=== PATIENT | male | born 1955 | race African-American/Black ===

== ENCOUNTER → 2016-10-27 | Day surgery (SDC) | payer OTHER ==
[~2016-10-27] MED LIST: ACETAMINOPHEN/HYDROcodone 325 MG/5 MG TAB ONE; ASPI81CH25 PO; ATOR40TA16 PO; BUPIVACAINE/EPINEPHRINE 0.5% PF 30 ML VIAL ONE; GLIP5TAB8 PO; GLUCTES27 TOPICAL; HYDR-3516 PO; HYDR-3583 PO; KETOROLAC TROMETHAMINE 30 MG/ML (IVP) VIAL IV PUSH ONE; LACTATED RINGER'S 1000 ML INJ 1,000 ML ONE; METF500T PO; MIDAZOLAM HCL 2 MG/2 ML VIAL ONE; MOBI7.5T PO; MULT1TAB84 PO; PROPOFOL 200 MG/20 ML AMP IV ONE; TRIAMCINOLONE ACETONIDE 40 MG/ML VIAL ONE; ceFAZolin INJ 1,000 MG VIAL ONE
--- NOTE | 2016-10-28 19:34 | MP ---
cc: CHRIS HEBERT M.D. DATE OF SURGERY October 27, 2016 PREOPERATIVE DIAGNOSIS Left knee medial meniscus tear. POSTOPERATIVE DIAGNOSIS Left knee medial meniscus tear. PROCEDURE Left knee arthroscopic partial medial meniscectomy. SURGEON Dr. Chris Hebert ANESTHESIA General. ESTIMATED BLOOD LOSS Less than 10 cc. TOURNIQUET TIME Zero minutes. COMPLICATIONS None. DESCRIPTION This patient is a 60-year-old male who injured his left knee. He has had persistent pain in regards to his condition, failure of conservative treatment. Clinical exam as well as MRI confirmed the above-named findings. The patient was counseled as to the risks, benefits and alternatives to the above named proposed surgical procedure. He did wish to proceed with surgery. PROCEDURE IN DETAIL A written consent was obtained. The patient identified by name, taken to the operating room, placed supine. General anesthesia was administered as well as 2 grams of IV Ancef. The left thigh carefully placed in well-padded leg reis, left lower extremity prepped and draped using as isopropyl alcohol, Hibiclens solution and DuraPrep solution. The standard medial and lateral parapatellar arthroscope portal was established. 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 The medial compartment revealed a complex tear of the posterior horn of the medial meniscus. An arthroscopic biter followed by an arthroscopic shaver was introduced in the medial compartment to perform partial medial meniscectomy. The meniscal rim was probed and noted to be stable after meniscectomy. The medial femoral condyle revealed diffuse grade 2 chondromalacia. There was an area of focal grade 4 chondromalacia along the far medial portion of the medial tibial plateau. The intercondylar notch revealed the anterior and posterior cruciate ligaments to be intact. The lateral compartment was relatively free of meniscal pathology and chondromalacia. The shaver was introduced into the anterior patellofemoral compartment. A chondroplasty along the undersurface of the patella was performed. At the conclusion of the surgical procedure 30 cc of 0.25% Marcaine with epinephrine was injected into the knee joint mixed with 40 milligrams Kenalog. The arthroscopic portals were closed with 3-0 Prolene suture. Sterile dressing applied. The patient tolerated the procedure well. No intraoperative complications noted. Chris Hebert MD JWKayleigh/RANDY /9:22 AM /7:05 PM
== END | disposition home or self-care (01) ==
LOC: ESDC 07:04
PROVIDERS: ATTEND Orthopaedic Surgery Sports Medicine
DX: S83.232A Complex tear of medial meniscus, current injury, left knee, initial encounter (principal)
CPT/HCPCS: 01400; 29881; J0690; J1885; J2250; J3010; J3301; J7120

== ENCOUNTER 2016-11-01 18:06 | Emergency (ER) | payer OTHER ==
[~2016-11-01] VITALS: Ht 195.6 cm; Wt 115.0 kg
[~2016-11-01 18:06] MED LIST changes: -ACETAMINOPHEN/HYDROcodone 325 MG/5 MG TAB ONE; -ASPI81CH25 PO; -ATOR40TA16 PO; -BUPIVACAINE/EPINEPHRINE 0.5% PF 30 ML VIAL ONE; -GLUCTES27 TOPICAL; -HYDR-3516 PO; -KETOROLAC TROMETHAMINE 30 MG/ML (IVP) VIAL IV PUSH ONE; -LACTATED RINGER'S 1000 ML INJ 1,000 ML ONE; -MIDAZOLAM HCL 2 MG/2 ML VIAL ONE; -MOBI7.5T PO; -PROPOFOL 200 MG/20 ML AMP IV ONE; -TRIAMCINOLONE ACETONIDE 40 MG/ML VIAL ONE; -ceFAZolin INJ 1,000 MG VIAL ONE
[2016-11-01 18:12] VITALS: BP 109/85; PULSE 96; RESP 17; TEMP 99.6; O2SAT 98
[2016-11-01 20:34] VITALS: BP 123/87; PULSE 87; RESP 18; TEMP 97.9; O2SAT 98
[2016-11-01] MEDS ORDERED: SODIUM CHLORIDE 0.9% FLUSH 5 ML FLUSH IVF PRN (21:30)
[2016-11-01] MEDS ORDERED: SODIUM CHLOR 0.9% 1000 ML INJ 1,000 ML IV ONE (21:30)
[2016-11-01 21:44] VITALS: O2SAT 97
--- NOTE | 2016-11-01 21:45 | PD ---
HPI Chief Complaint: Diabetic Time Seen by Provider: 21:17 Travel History International Travel<30 days: No Contact w/Intl Traveler<30days: No Traveled to known affect area: No History of Present Illness HPI 60-year-old male presents to the emergency department by private transportation for evaluation of elevated blood sugar. Patient is been a diabetic 5 years and takes metformin daily 1000 mg twice a day for management of his blood sugar. Patient has been well-controlled. Patient states Sunday he electively underwent knee surgery for a torn meniscus and has done well postoperatively regarding any knee complaints. Patient has had no redness, no swelling, no effusion, no warmth, no tenderness, no increasing pain, no lower extremity calf pain or pedal or lower leg/lower extremity edema. No shortness of breath no pleuritic pain no chest pain. Patient has had intermittent sweats and reported chills. Patient denies noting a fever. Patient has noticed increased urine output. Patient's had poor appetite today and complains of thirst. Patient reports that he did take both doses of his metformin today. Patient states his blood sugar was normal on Sunday did not check his blood sugar on Sunday today blood sugars have been elevated. Patient decided to come to the emergency room as symptoms are not resolving at home. At home blood sugars were 386; in triage reportedly blood sugar was 371. PFSH Past Medical History Narrative Medical Diabetes, cardiac ablation, orthopedic surgery/arthroscopy, diabetes lymphoma 2000 status post lymph node excision chemotherapy and radiation therapy ongoing tobacco use nursing notes reviewed Blood Disorders: No Heart Rhythm Problems: Yes (HAD ABLATION AND RESOLVED) Cancer: Yes (HX LYMPHOMA WITH RADIATION 2000) Cardiac Catheterization: No Cardiovascular Problems: Yes High Cholesterol: No Congestive Heart Failure: No Diabetes: Yes Patient Takes Glucophage: Yes (11/01/2016 at 1200) Diminished Hearing: No Endocrine: No Gastrointestinal Disorders: No Genitourinary: No Hypertension: No Immune Disorder: No Implanted Vascular Access Dvce: No Musculoskeletal: Yes Neurologic: Yes Psychiatric: No Reproductive: No Respiratory: Yes () Myocardial Infarction: No Radiation Therapy: Yes (2000) Thyroid Disease: No Tetanus Vaccination: > 5 Years Influenza Vaccination: No Past Surgical History Cardiac Surgery: Yes (CARDIAC ABLATION) Coronary Artery Bypass Graft: No Other Surgery: Yes (LYMPHOMA-CANCEROUS IN L NECK) Social History Alcohol Use: Yes (Occasionally) Tobacco Use: Yes (1/2 PPD) Substance Use: No Allergies-Medications (Allergen,Severity, Reaction): Coded Allergies: Aspirin (Unverified Adverse Reaction, Intermediate, Chest Pain, 11/01/16) Has tried multiple times to take low dose asa but gets central chest pain. Reported Meds & Prescriptions Reported Meds & Active Scripts Active Hydrocodone-Acetaminophen 10-325 mg Tab 1 Tab PO Q6H PRN Not to be filled before 10-26-16 Metformin (Metformin HCl) 500 Mg Tab 1,000 Mg PO BIDPC With meals Reported Multivitamin Adults (Multiple Vitamins W/ Minerals) 1 Tab 1 Tab PO DAILY Review of Systems Except as stated in HPI: all other systems reviewed are Neg General / Constitutional: Positive: Chills, No: Fever HENT: No: Congestion Cardiovascular: Positive: Diaphoresis, No: Chest Pain or Discomfort, Palpitations, Tachycardia, Syncope, Dyspnea on exertion, Edema Respiratory: No: Cough, Shortness of Breath, Wheezing, Hemoptysis, Pleuritic Pain Gastrointestinal: No: Nausea, Vomiting, Abdominal Pain Genitourinary: Positive: Frequency, No: Dysuria Musculoskeletal: No: Myalgias, Arthralgias, Limited ROM Skin: No Rash Neurologic: No: Weakness, Dizziness, Syncope, Focal Abnormalities, Coordination Problem Psychiatric: Positive: Anxiety Endocrine: Positive: Polydipsia Hematologic/Lymphatic: No: Easy Bruising Physical Exam Narrative GENERAL: Well-developed well-nourished male in no acute distress no respiratory distress; bedside blood glucose 335 SKIN: Warm and dry. HEAD: Normocephalic. EYES: No scleral icterus. No injection or drainage. NECK: Supple, trachea midline. No JVD or lymphadenopathy. CARDIOVASCULAR: Regular rate and rhythm without murmurs, gallops, or rubs. RESPIRATORY: Breath sounds equal bilaterally. No accessory muscle use. GASTROINTESTINAL: Abdomen soft, non-tender, nondistended. MUSCULOSKELETAL: No cyanosis, or edema. Attention left knee sutures intact, no redness, no increased warmth, no edema, no ballotable effusion, no decreased range of motion; distally extremities neurovascularly intact with 2+ posterior tibialis and dorsalis pedis pulse and no pedal or LLE edema. BACK: Nontender without obvious deformity. No CVA tenderness. Data Data Last Documented VS Vital Signs Date Time Temp Pulse Resp B/P Pulse Ox O2 Delivery O2 Flow Rate FiO2 11/01/16 23:00 83 18 139/92 98 Room Air 11/01/16 20:34 97.9 Orders Electrocardiogram (11/01/16 21:17) Complete Blood Count With Diff (11/01/16 21:17) Comprehensive Metabolic Panel (11/01/16 21:17) Magnesium (Mg) (11/01/16 21:17) Beta Hydroxybutyrate (Acetone) (11/01/16 21:17) Urinalysis - C+S If Indicated (11/01/16 21:17) Chest, Single Ap (11/01/16 21:17) Blood Glucose (11/01/16 21:17) Ecg Monitoring (11/01/16 21:17) Iv Access Insert/Monitor (11/01/16 21:17) Oximetry (11/01/16 21:17) NPO (11/01/16 21:17) Sodium Chloride 0.9% Flush (Ns Flush) (11/01/16 21:30) Troponin I (11/01/16 21:17) Sodium Chlor 0.9% 1000 Ml Inj (Ns 1000 M (11/01/16 21:30) Lactic Acid (11/01/16 21:17) Insulin Human Regular Inj (Novolin R Inj (11/01/16 23:15) Blood Glucose (11/01/16 23:03) Labs Laboratory Tests Test 11/01/16 11/01/16 21:44 22:25 White Blood Count 10.7 TH/MM3 Red Blood Count 4.82 MIL/MM3 Hemoglobin 14.1 GM/DL Hematocrit 42.6 % Mean Corpuscular Volume 88.4 FL Mean Corpuscular Hemoglobin 29.2 PG Mean Corpuscular Hemoglobin 33.1 % Concent Red Cell Distribution Width 13.1 % Platelet Count 278 TH/MM3 Mean Platelet Volume 7.9 FL Neutrophils (%) (Auto) 61.3 % Lymphocytes (%) (Auto) 25.4 % Monocytes (%) (Auto) 7.5 % Eosinophils (%) (Auto) 1.3 % Basophils (%) (Auto) 4.5 % Neutrophils # (Auto) 6.6 TH/MM3 Lymphocytes # (Auto) 2.7 TH/MM3 Monocytes # (Auto) 0.8 TH/MM3 Eosinophils # (Auto) 0.1 TH/MM3 Basophils # (Auto) 0.5 TH/MM3 CBC Comment DIFF FINAL Differential Comment Sodium Level 139 MEQ/L Potassium Level 4.2 MEQ/L Chloride Level 101 MEQ/L Carbon Dioxide Level 30.3 MEQ/L Anion Gap 8 MEQ/L Blood Urea Nitrogen 20 MG/DL Creatinine 0.99 MG/DL Estimat Glomerular Filtration 93 ML/MIN Rate Random Glucose 289 MG/DL Lactic Acid Level 0.9 mmol/L Calcium Level 9.3 MG/DL Magnesium Level 1.9 MG/DL Total Bilirubin 0.5 MG/DL Aspartate Amino Transf 13 U/L (AST/SGOT) Alanine Aminotransferase 33 U/L (ALT/SGPT) Alkaline Phosphatase 120 U/L Troponin I LESS THAN 0.02 NG/ML Total Protein 8.0 GM/DL Albumin 3.7 GM/DL B-Hydroxybutyrate 0.23 MMOL/L Urine Color YELLOW Urine Turbidity CLEAR Urine pH 5.5 Urine Specific [place] 1.034 Urine Protein TRACE mg/dL Urine Glucose (UA) 500 mg/dL Urine Ketones TRACE mg/dL Urine Occult Blood NEG Urine Nitrite NEG Urine Bilirubin NEG Urine Leukocyte Esterase NEG Urine RBC 0-2 /hpf Urine WBC 0-2 /hpf Urine Squamous Epithelial 0-5 /hpf Cells Urine Bacteria NONE /hpf Microscopic Urinalysis Comment CULT NOT INDICATED MDM Medical Decision Making Medical Screen Exam Complete: Yes Emergency Medical Condition: Yes Medical Record Reviewed: Yes Interpretation(s) EKG: Normal sinus rhythm rate [address] elevation injury pattern or ectopy noted artifact is present at baseline however Differential Diagnosis Polyuria, hyperglycemia, uncontrolled diabetes, DKA, UTI, pneumonia, PE, ACS, electrolyte disturbance Narrative Course IV access obtained specimens collected and sent for resulting; Accu-Chek 335 EKG performed sinus rhythm no acute injury pattern change noted @ 22:00 serum glucose 289 with bicarb 30.3 and anion gap of 8, values within normal range Patient administered regular insulin subcutaneously Patient taking oral hydration well Patient stable for outpatient management Diagnosis Primary Impression: Hyperglycemia Additional Impressions: Diabetes mellitus type 2 in nonobese Dehydration Referrals: Orthopedist call for appointment as scheduled Primary Care Physician 1 day Patient Instructions: General Instructions Additional Instructions: Increase fluid hydration Follow-up with your primary care physician call office in a.m. Follow-up with orthopedic surgeon as scheduled Monitor temperature every 4 hours with thermometer take as needed acetaminophen/ Tylenol for fever 100.4F or greater Return to the emergency department for any concerns or change in condition Continue with metformin as presently prescribed Follow diabetic diet closely Monitor blood sugars closely Med/Other Pt SpecificInfo: No Change to Meds Disposition: 01 DISCHARGE HOME Condition: Stable Mary Baker MD Nov 01, 2016 21:45
[2016-11-01 21:50] LABS: AUTOMATED NEUTROPHIL # 6.6 TH/MM3 (1.8-7.7); BASOPHIL # 0.5 TH/MM3 (0-0.2); BASOPHIL % 4.5 % (0.0-2.0); EOSINOPHIL # 0.1 TH/MM3 (0-0.4); EOSINOPHIL % 1.3 % (0.0-4.0); HEMATOCRIT 42.6 % (39.0-51.0); HEMO FLAGS DIFF FINAL; LYMPH % 25.4 % (9.0-44.0); LYMPHOCYTE # 2.7 TH/MM3 (1.0-4.8); MEAN CELL VOLUME 88.4 FL (80.0-100.0); MEAN CORPUSCULAR HEMOGLOBIN 29.2 PG (27.0-34.0); MEAN CORPUSCULAR HGB CONC 33.1 % (32.0-36.0); MONO % 7.5 % (0.0-8.0); NEUT % 61.3 % (16.0-70.0); PLATELET COUNT 278 TH/MM3 (150-450); RED BLOOD COUNT 4.82 MIL/MM3 (4.50-5.90); RED CELL DISTRIBUTION WIDTH 13.1 % (11.6-17.2); WHITE BLOOD COUNT 10.7 TH/MM3 (4.0-11.0)
--- NOTE | 2016-11-01 21:54 | RADHPO ---
EXAM DATE/TIME: 11/01/2016 21:45 [place] COMPARISON: No previous studies available for comparison. INDICATIONS : Fever, chest discomfort for 2 days MEDICAL HISTORY : Diabetes mellitus type II. SURGICAL HISTORY : None. ENCOUNTER: Initial ACUITY: 2 days PAIN SCORE: 0/10 LOCATION: Bilateral chest FINDINGS: A single view of the chest demonstrates the lungs to be symmetrically aerated without evidence of mas s, infiltrate or effusion. The cardiomediastinal contours are unremarkable. Osseous structures are intact. CONCLUSION: No acute disease. Lane Weathers MD on November 01, 2016 at 21:52 Board Certified Radiologist. This report was verified electronically.
[2016-11-01 21:57] LABS: CHLORIDE 101 MEQ/L (98-107); POTASSIUM 4.2 MEQ/L (3.5-5.1); SODIUM (NA) 139 MEQ/L (136-145)
[2016-11-01 22:00] VITALS: BP 127/85; PULSE 86; RESP 18; O2SAT 97
[2016-11-01 22:01] LABS: ANION GAP 8 MEQ/L (5-15); BICARBONATE 30.3 MEQ/L (21.0-32.0); BLOOD UREA NITROGEN 20 MG/DL (7-18); MAGNESIUM 1.9 MG/DL (1.5-2.5)
[2016-11-01 22:03] LABS: ALT (GPT) 33 U/L (12-78)
[2016-11-01 22:04] LABS: AST (GOT) 13 U/L (15-37); GLOMERULAR FILTRATION RATE 93 ML/MIN (>89)
[2016-11-01 22:05] LABS: BETA-HYDROXYBUTYRATE 0.23 MMOL/L (0.00-0.39); TOTAL BILIRUBIN ADULT 0.5 MG/DL (0.2-1.0)
[2016-11-01 22:06] LABS: ALKALINE PHOSPHATASE 120 U/L (45-117)
[2016-11-01 22:42] LABS: BLOOD, URINE NEG (NEG); GLUCOSE,URINE 500 mg/dL (NEG); KETONE, URINE TRACE mg/dL (NEG); NITRITE,URINE NEG (NEG); PH, URINE 5.5 (5.0-8.5)
[2016-11-01 22:52] LABS: COMMENT (UR) CULT NOT INDICATED; CULTURE IF INDICATED CULT NOT INDICATED; RBC, URINE 0-2 /hpf (0-3); SQUAMOUS EPITHELIAL CELL URINE 0-5 /hpf (0-5); URINE COLOR YELLOW (YELLW/STRAW); WBC, URINE 0-2 /hpf (0-5)
[2016-11-01 23:00] VITALS: BP 139/92; PULSE 83; RESP 18; O2SAT 98
[2016-11-01] MEDS ORDERED: INSULIN HUMAN REGULAR 1,000 UNITS/10 ML VIAL SQ ONE (23:15)
[2016-11-02 00:15] VITALS: BP 144/89; PULSE 86; RESP 18; O2SAT 96
--- NOTE | 2016-11-02 21:05 | EKG ---
Date Performed: 11/01/2016 Time Performed: 21:36:40 PTAGE: 60 years EKG: Sinus rhythm Normal ECG PREVIOUS TRACING : 10/22/2008 19.27 DOCTOR: Stephan Martin Interpretating Date/Time 11/02/2016 21:01:57
[2016-11-21] MEDS ORDERED: HYDR-3583 PO (08:39)
[2016-12-21] MEDS ORDERED: HYDR-3583 PO (20:37)
[2017-01-02] MEDS ORDERED: METF500T PO (13:01)
[2017-01-23] MEDS ORDERED: GLUCTES27 TOPICAL (08:38)
[2017-01-23] MEDS ORDERED: HYDR-3583 PO (08:48)
[2017-02-22] MEDS ORDERED: HYDR-3583 PO (09:40)
[2017-03-27] MEDS ORDERED: HYDR-3516 PO ×2 (12:19→15:41)
== END 2016-11-02 00:44 | disposition home or self-care (01) ==
LOC: PHED 18:06
DX: E11.65 Type 2 diabetes mellitus with hyperglycemia (principal); E86.0 Dehydration; F17.210 Nicotine dependence, cigarettes, uncomplicated; Z79.4 Long term (current) use of insulin; Z98.890 Other specified postprocedural states
CPT/HCPCS: 71010; 80053; 81001; 82010; 83605; 83735; 84484; 85025; 93005; 96360; 96372; 99285; J1815; J7030

== ENCOUNTER 2017-03-19 00:59 | Inpatient (IN) | payer OTHER ==
[2017-03-19] VITALS (11 sets, daily range): BP systolic 106–218; BP diastolic 59–94; PULSE 76–107; RESP 16–20; TEMP 97.5–98.9; O2SAT 95–97
[~2017-03-19] VITALS: Ht 195.6 cm; Wt 118.0 kg
[~2017-03-19 00:59] MED LIST changes: -GLIP5TAB8 PO; +GLUCTES27 TOPICAL
[2017-03-19] MEDS ORDERED: MOBI7.5T PO (01:24)
--- NOTE | 2017-03-19 01:44 | PD ---
HPI Chief Complaint: Neuro Symptoms/ Deficits Time Seen by Provider: :17 Travel History International Travel<30 days: No Contact w/Intl Traveler<30days: No Traveled to known affect area: No History of Present Illness HPI The patient is a 61 year old male who presents to the [facility] emergency department with a history of after working out feeling shooting pains in his left arm. He reports that he attributed this to the workout and the symptoms resolved, however on yesterday at 7:30 AM when he awoke, he reports that he felt unsteady on his feet. He reports that he felt lightheaded and had to hold onto the wall to walk. He then went home and laid down to nap. When he awoke again symptoms continued. The patient reports that he went to work and a coworker noticed that his left eyelid seemed to be drooping and that he was again unsteady on his feet. At that time he had a headache in the left hoahaoism. He was concerned that he may be experiencing a stroke. He denies having any weakness in his arms or legs. He denies having any difficulty with word finding ability. He denies having any slurred speech. He denies having any vision changes. He denies any recent changes to his medication regimen. The patient denies taking any aspirin or blood thinners. He reports that he is on meloxicam daily since October after having a left knee surgery. I review systems, the patient denies any recent fevers, cough, congestion, neck pain, chest pain, abdominal pain, vomiting, diarrhea, urinary symptoms, or other neurologic symptoms. He denies having any sensation that the room is spinning. He does however on review systems report having some shortness of breath with exertion. He reports that this has been chronic and have improved with weight loss. [facility] Past Medical History Narrative Medical The patient's past medical history is significant for diabetes mellitus, history of hypertension, history of lymphoma status post radiation and chemotherapy, history of cardiac arrhythmia status post ablation, history of arthritis. Blood Disorders: No Heart Rhythm Problems: Yes (HAD ABLATION AND RESOLVED) Cancer: Yes (HX LYMPHOMA WITH RADIATION 2000) Cardiac Catheterization: No Cardiovascular Problems: Yes High Cholesterol: No Chemotherapy: Yes (2000) Congestive Heart Failure: No Diabetes: Yes Patient Takes Glucophage: Yes (03/18/17 2200) Diminished Hearing: No Endocrine: No Gastrointestinal Disorders: No Genitourinary: No Hypertension: No Immune Disorder: No Implanted Vascular Access Dvce: No Musculoskeletal: Yes Neurologic: Yes Psychiatric: No Reproductive: No Respiratory: Yes () Myocardial Infarction: No Radiation Therapy: Yes (2000) Thyroid Disease: No Tetanus Vaccination: < 5 Years Influenza Vaccination: No Past Surgical History Narrative Surgical The patient's past surgical history is significant for left knee surgery, surgery related to lymphoma in the neck, history of cardiac ablation. Cardiac Surgery: Yes (CARDIAC ABLATION ) Coronary Artery Bypass Graft: No Other Surgery: Yes (LYMPHOMA-CANCEROUS IN L NECK) Social History Alcohol Use: Yes (Occasionally) Tobacco Use: Yes (10/16 PPD) Substance Use: No Allergies-Medications (Allergen,Severity, Reaction): Coded Allergies: No Known Allergies (Unverified , 03/19/17) Reported Meds & Prescriptions Reported Meds & Active Scripts Active Hydrocodone-Acetaminophen 10-325 mg Tab 1 Tab PO Q6H PRN Not to be filled before 02-23-17 Bella Contour Next Blood Test Strips (Blood Glucose Test Strips) 1 Joy Joy 1 Strip TOPICAL DIRECTED PRN Metformin (Metformin HCl) 500 Mg Tab 1,000 Mg PO BIDPC With meals Reported Mobic (Meloxicam) 7.5 Mg Tab 7.5 Mg PO DAILY Review of Systems Except as stated in HPI: all other systems reviewed are Neg General / Constitutional: No: Fever Eyes: No: Visual changes HENT: Positive: Headaches, Lightheadedness, No: Rhinorrhea, Congestion, Neck Stiffness, Neck Pain Cardiovascular: Positive: Dyspnea on exertion, No: Chest Pain or Discomfort, Syncope Respiratory: Positive: Shortness of Breath, No: Cough Gastrointestinal: No: Nausea, Vomiting, Diarrhea, Abdominal Pain Genitourinary: No: Dysuria Musculoskeletal: No: Myalgias, Pain Skin: No Rash Neurologic: Positive: Ataxia, No: Weakness, Focal Abnormalities, Change in Mentation, Slurred Speech, Sensory Disturbance Psychiatric: No: Depression Endocrine: No: Polydipsia Hematologic/Lymphatic: No: Easy Bruising Physical Exam Narrative General: The patient is a well-developed well-nourished male. Head and Neck exam: Head is normocephalic atraumatic. Eyes: EOMI, pupils are equal round and reactive to light. The patient has a slight ptosis of the left eyelid. Nose: Midline septum with pink mucous membranes Mouth: Dentition unremarkable. Moist mucus membranes. Posterior oropharynx is not erythematous. No tonsillar hypertrophy. Uvula midline. Airway patent. Neck: No palpable lymphadenopathy. No nuchal rigidity. No thyromegaly. Cardiovascular: Regular rate and rhythm without murmurs, gallops, or rubs. Lungs: Clear to auscultation bilaterally. No wheezes, rhonchi, or rales. Abdomen: Soft, without tenderness to palpation in all 4 quadrants of the abdomen. No guarding, rebound, or rigidity. Normal bowel sounds are audible. No tenderness on palpation of McBurney's point. Negative Posadas sign. Extremities: No clubbing, cyanosis, or edema. 2+ pulses in all 4 extremities. No calf tenderness on palpation. Back: No costovertebral angle tenderness to palpation. Neurologic Exam: Cranial nerves 2-12 were intact on exam. Strength is 5/5 in all 4 extremities. No sensory deficits noted. No dysdiadochokinesis. Good finger to nose and Heel to hill bilaterally. Skin Exam: No rash noted. Intact skin that is warm and dry. Data Data Last Documented VS Vital Signs Date Time Temp Pulse Resp B/P Pulse Ox O2 Delivery O2 Flow Rate FiO2 03/19/17 01:35 92 16 146/75 97 16 129/77 101 18 127/94 03/19/17 01:11 95 03/19/17 01:01 98.9 Room Air Orders Electrocardiogram (03/19/17 01:30) Complete Blood Count With Diff (03/19/17 01:30) Comprehensive Metabolic Panel (03/19/17 01:30) Creatine Kinase (Cpk) (03/19/17 01:30) Ckmb (Isoenzyme) Profile (03/19/17 01:30) Troponin I (03/19/17 01:30) B-Type Natriuretic Peptide (03/19/17 01:30) Prothrombin Time / Inr (Pt) (03/19/17 01:30) Act Partial Throm Time (Ptt) (03/19/17 01:30) Lipase (03/19/17 01:30) Urinalysis - C+S If Indicated (03/19/17 01:30) Magnesium (Mg) (03/19/17 01:30) Chest, Single Ap (03/19/17 01:30) Ct Brain W/O Iv Contrast(Rout) (03/19/17 01:30) Iv Access Insert/Monitor (03/19/17 01:30) Ecg Monitoring (03/19/17 01:30) Oximetry (03/19/17 01:30) Orthostatic Vital Signs (03/19/17 01:30) Sodium Chlorid 0.9% 500 Ml Inj (Ns 500 M (03/19/17 01:45) CKMB (03/19/17 01:37) CKMB% (03/19/17 01:37) Westergren Sedimentation Rate (03/19/17 03:47) Aspirin (Aspirin) (03/19/17 04:00) Admit Order (Ed Use Only) (03/19/17 03:47) Labs Laboratory Tests Test 03/19/17 03/19/17 01:37 02:30 White Blood Count 9.0 TH/MM3 Red Blood Count 4.46 MIL/MM3 Hemoglobin 13.6 GM/DL Hematocrit 39.5 % Mean Corpuscular Volume 88.6 FL Mean Corpuscular Hemoglobin 30.5 PG Mean Corpuscular Hemoglobin 34.5 % Concent Red Cell Distribution Width 13.6 % Platelet Count 272 TH/MM3 Mean Platelet Volume 8.2 FL Neutrophils (%) (Auto) 63.9 % Lymphocytes (%) (Auto) 23.9 % Monocytes (%) (Auto) 9.3 % Eosinophils (%) (Auto) 2.2 % Basophils (%) (Auto) 0.7 % Neutrophils # (Auto) 5.8 TH/MM3 Lymphocytes # (Auto) 2.2 TH/MM3 Monocytes # (Auto) 0.8 TH/MM3 Eosinophils # (Auto) 0.2 TH/MM3 Basophils # (Auto) 0.1 TH/MM3 CBC Comment DIFF FINAL Differential Comment Erythrocyte Sedimentation Rate 44 mm/hr Prothrombin Time 10.6 SEC Prothromb Time International 1.0 RATIO Ratio Activated Partial 27.1 SEC Thromboplast Time Sodium Level 140 MEQ/L Potassium Level 4.1 MEQ/L Chloride Level 105 MEQ/L Carbon Dioxide Level 29.0 MEQ/L Anion Gap 6 MEQ/L Blood Urea Nitrogen 19 MG/DL Creatinine 1.00 MG/DL Estimat Glomerular Filtration 92 ML/MIN Rate Random Glucose 171 MG/DL Calcium Level 9.0 MG/DL Magnesium Level 2.1 MG/DL Total Bilirubin 0.3 MG/DL Aspartate Amino Transf 21 U/L (AST/SGOT) Alanine Aminotransferase 29 U/L (ALT/SGPT) Alkaline Phosphatase 100 U/L Total Creatine Kinase 173 U/L Creatine Kinase MB 0.9 NG/ML Troponin I LESS THAN 0.02 NG/ML B-Type Natriuretic Peptide 4 PG/ML Total Protein 7.6 GM/DL Albumin 3.6 GM/DL Lipase 388 U/L Urine Color YELLOW Urine Turbidity CLEAR Urine pH 6.5 Urine Specific [place] 1.022 Urine Protein NEG mg/dL Urine Glucose (UA) 150 mg/dL Urine Ketones TRACE mg/dL Urine Occult Blood NEG Urine Nitrite NEG Urine Bilirubin NEG Urine Urobilinogen LESS THAN 2.0 MG/DL Urine Leukocyte Esterase NEG MDM Medical Decision Making Medical Screen Exam Complete: Yes Emergency Medical Condition: Yes Medical Record Reviewed: Yes Interpretation(s) Last Impressions Head CT 03/19/17129 Signed Impressions: Service Date/Time: Sunday, March 19, 2017 01:45 - CONCLUSION: Normal examination. Neil Posadas MD Chest X-Ray 03/19/17129 Signed Impressions: Service Date/Time: Sunday, March 19, 2017 01:41 - CONCLUSION: Normal examination. Prominent aortic arch similar to October. Neil Posadas MD Differential Diagnosis Orthostasis, versus vertigo, versus intracranial abnormality, versus TIA Narrative Course During the course of the patients emergency department visit, the patients history, examination, and differential diagnosis were reviewed with the patient. The patient had IV access obtained and blood work sent for analysis. The patient was placed on a case monitor with oximetry and blood pressure monitoring. Orthostatic vital signs were collected. The patient's lying blood pressure was 146/75 with a heart rate of 92, with standing his blood pressure was 127/94, heart rate 101. The patient was initially provided normal saline a 500 mL bolus 1. The patients laboratory studies were reviewed and remarkable for a CBC that is unremarkable, that her mentation rate was noted to be elevated at 44, CMP is remarkable for BUN of 19, glucose 171, cardiac enzymes within normal limits, BNP 4, lipase 388, PT PTT within normal limits. Urinalysis shows 150 glucose, trace ketones. Radiology studies were reviewed and remarkable for a chest x-ray shows no acute abnormality. The patient has a prominent aortic arch similar to October. CT scan of the brain shows no acute abnormality. The patients results were discussed with the patient, including the plan of care. I explained that further testing and/ or monitoring is indicated based on the patients history, examination, and/ or laboratory findings. Therefore, I recommended admission for additional evaluation. The patient expressed understanding and was agreeable with this plan. The patient was admitted to the hospital in stable condition and [facility] Physician Communication Physician Communication The Patient's case was discussed with Dr. Peters who did agree to admit the patient for further evaluation and treatment at this time. Diagnosis Primary Impression: TIA (transient ischemic attack) Qualified Code: G45.9 - Transient cerebral ischemia, unspecified type Admitting Information Admitting Physician Requests: Wanda Miller MD Mar 19, 2017 01:44
[2017-03-19] MEDS ORDERED: SODIUM CHLORID 0.9% 500 ML INJ 500 ML IV ONE (01:45)
[2017-03-19 01:47] LABS: AUTOMATED NEUTROPHIL # 5.8 TH/MM3 (1.8-7.7); BASOPHIL # 0.1 TH/MM3 (0-0.2); BASOPHIL % 0.7 % (0.0-2.0); EOSINOPHIL # 0.2 TH/MM3 (0-0.4); EOSINOPHIL % 2.2 % (0.0-4.0); HEMATOCRIT 39.5 % (39.0-51.0); HEMO FLAGS DIFF FINAL; LYMPH % 23.9 % (9.0-44.0); LYMPHOCYTE # 2.2 TH/MM3 (1.0-4.8); MEAN CELL VOLUME 88.6 FL (80.0-100.0); MEAN CORPUSCULAR HEMOGLOBIN 30.5 PG (27.0-34.0); MEAN CORPUSCULAR HGB CONC 34.5 % (32.0-36.0); MONO % 9.3 % (0.0-8.0); NEUT % 63.9 % (16.0-70.0); PLATELET COUNT 272 TH/MM3 (150-450); RED BLOOD COUNT 4.46 MIL/MM3 (4.50-5.90); RED CELL DISTRIBUTION WIDTH 13.6 % (11.6-17.2)
--- NOTE | 2017-03-19 01:51 | RADRPT ---
EXAM DATE/TIME: 03/19/2017 01:45 [facility] COMPARISON: No previous studies available for comparison. INDICATIONS : Left methodist pain with dizziness. RADIATION DOSE: 44.32 CTDIvol (mGy) MEDICAL HISTORY : Cardiovascular disease. Diabetes mellitus type 2. Lymphoma. SURGICAL HISTORY : None. ENCOUNTER: Initial ACUITY: 1 day PAIN SCALE: 5/10 LOCATION: Left cranial TECHNIQUE: Multiple contiguous axial images were obtained of the head. Using automated exposure control and adj ustment of the mA and/or kV according to patient size, radiation dose was kept as low as reasonably a chievable to obtain optimal diagnostic quality images. FINDINGS: CEREBRUM: The ventricles are normal for age. No evidence of midline shift, mass lesion, hemorrhage or acute in farction. No extra-axial fluid collections are seen. POSTERIOR FOSSA: The cerebellum and brainstem are intact. The 4th ventricle is midline. The cerebellopontine angle i s unremarkable. EXTRACRANIAL: The visualized portion of the orbits is intact. SKULL: The calvaria is intact. No evidence of skull fracture. CONCLUSION: Normal examination. Neil Posadas MD on March 19, 2017 at 1:50 Board Certified Radiologist. This report was verified electronically.
--- NOTE | 2017-03-19 01:53 | RADRPT ---
EXAM DATE/TIME: 03/19/2017 01:41 [facility] COMPARISON: CHEST SINGLE AP, November 01, 2016, 21:45. INDICATIONS : Pt having chest pain and dizziness. MEDICAL HISTORY : Diabetes mellitus type II. SURGICAL HISTORY : None. ENCOUNTER: Initial ACUITY: 1 day PAIN SCORE: 7/10 LOCATION: Bilateral chest FINDINGS: A single view of the chest demonstrates the lungs to be symmetrically aerated without evidence of mas s, infiltrate or effusion. The cardiomediastinal contours are unremarkable. Osseous structures are intact. Stable bleb right lower lobe. Aortic arch remains mildly prominent, unchanged since October CONCLUSION: Normal examination. Prominent aortic arch similar to October. Neil Posadas MD on March 19, 2017 at 1:50 Board Certified Radiologist. This report was verified electronically.
[2017-03-19 01:58] LABS: APTT (PATIENT) 27.1 SEC (24.3-30.1); PROTHROMBIN TIME - PATIENT 10.6 SEC (9.8-11.6)
[2017-03-19 02:09] LABS: ALKALINE PHOSPHATASE 100 U/L (45-117); CREATINE KINASE 173 U/L (39-308); TOTAL BILIRUBIN ADULT 0.3 MG/DL (0.2-1.0)
[2017-03-19 02:13] LABS: ALT (GPT) 29 U/L (12-78); ANION GAP 6 MEQ/L (5-15); AST (GOT) 21 U/L (15-37); BLOOD UREA NITROGEN 19 MG/DL (7-18); CHLORIDE 105 MEQ/L (98-107); GLOMERULAR FILTRATION RATE 92 ML/MIN (>89); MAGNESIUM 2.1 MG/DL (1.5-2.5); POTASSIUM 4.1 MEQ/L (3.5-5.1); SODIUM (NA) 140 MEQ/L (136-145)
[2017-03-19 02:21] LABS: CKMB 0.9 NG/ML (0.5-3.6)
[2017-03-19 03:12] LABS: BLOOD, URINE NEG (NEG); GLUCOSE,URINE 150 mg/dL (NEG); KETONE, URINE TRACE mg/dL (NEG); NITRITE,URINE NEG (NEG); PH, URINE 6.5 (5.0-8.5); URINE COLOR YELLOW (YELLW/STRAW)
[2017-03-19 03:22] LABS: COMMENT2 (UR) CULT NOT INDICATED
[2017-03-19 03:23] LABS: CULTURE IF INDICATED CULT NOT INDICATED
[2017-03-19] MEDS ORDERED: ASPIRIN 325 MG TAB PO ONE (04:00)
--- NOTE | 2017-03-19 06:00 | HHI.HP ---
[facility] Service Family Medicine Primary Care Physician Hilda Munoz MD Admission Diagnosis TIA Diagnoses: International Travel<30 Days: No Contact w/Intl Traveler<30days: No Known Affected Area: No History of Present Illness Patient is a 61-year-old male with PMH significant for DM and lymphoma in 2000. Presented to the ED due to unsteady gait and left facial droop. 2 days ago he reported left shooting arm pain that was attributed to a workout but this resolved. He did wake up at 7 AM feeling "off" and groggy which he attributed to his allergies. But by 8 AM, he developed an unsteady gait, slurred speech, localized severe left temporal pain that was stabbing in nature. Endorsed nausea but without vomiting. Denies chest pain, SOB, abdominal pain. Denies jaw pain or syncope. He was able to make it back to his house and rested for 10 minutes before driving to the store despite continued presence of symptoms. After going to the store, he slept for 4-5 hours but symptoms were persistent. He then went to work at night where his coworker noted left-sided facial droop. At the insistence of his coworker, he presented to the ED last night. This morning patient reports feeling much better and states that his speech has significantly improved as well. Prior to the onset of these symptoms, patient was feeling well and denies any similar prior episodes. Review of Systems Other ROS negative 10 except per history of present illness Past Family Social History Past Medical History T2 DM Lymphoma 2000 Ablation of atrial fibrillation Past Surgical History Left knee surgery x3 Cardiac ablation for atrial fibrillation Back disc surgery Allergies: Coded Allergies: No Known Allergies (Unverified , 03/19/17) Family History Mother: 80s but history significant for diabetes and a stroke Father: from [place] at 48 Social History Lives with Tobacco: 1/2ppd Alcohol: occasional Illicit drug use: none Physical Exam Vital Signs Vital Signs Date Time Temp Pulse Resp B/P Pulse Ox O2 Delivery O2 Flow Rate FiO2 03/19/17 05:09 98.1 78 18 123/81 97 03/19/17 01:35 92 16 146/75 97 16 129/77 101 18 127/94 03/19/17 01:11 101 16 147/79 95 03/19/17 01:01 98.9 107 18 218/81 97 Room Air Physical Exam GENERAL: This is a well-nourished, well-developed patient, in no apparent distress. Resting comfortably in bed. SKIN: No rashes, ecchymoses or lesions. Cool and dry. EYES: Pupils equal round and reactive. Extraocular motions intact. No scleral icterus. No injection or drainage. ENT: Nose without bleeding, purulent drainage. Throat without erythema, tonsillar hypertrophy or exudate. Uvula midline. Airway patent. CARDIOVASCULAR: Regular rate and rhythm without murmurs, gallops, or rubs. RESPIRATORY: Clear to auscultation. Breath sounds equal bilaterally. No wheezes , rales, or rhonchi. GASTROINTESTINAL: Abdomen soft, non-tender, nondistended. No hepato-splenomegaly , or palpable masses. No guarding. MUSCULOSKELETAL: Extremities without clubbing, cyanosis, or edema. No calf tenderness. NEUROLOGICAL: Awake and alert. Cranial nerves II through XII intact except for very minimal left eyelid drooping the patient is able to open and close his eyes on command. Face is otherwise symmetrical. Motor and sensory grossly within normal limits. No dysdiadochokinesia. Negative pronator drift. 5/5 muscle strength except for left knee extension 4/5 but this is patient's baseline due to prior injury. Five out of 5 muscle strength in all muscle groups. Absent biceps and patellar reflexes bilaterally. Normal speech. Laboratory Laboratory Tests Test 03/19/17 03/19/17 01:37 02:30 White Blood Count 9.0 Red Blood Count 4.46 Hemoglobin 13.6 Hematocrit 39.5 Mean Corpuscular Volume 88.6 Mean Corpuscular Hemoglobin 30.5 Mean Corpuscular Hemoglobin 34.5 Concent Red Cell Distribution Width 13.6 Platelet Count 272 Mean Platelet Volume 8.2 Neutrophils (%) (Auto) 63.9 Lymphocytes (%) (Auto) 23.9 Monocytes (%) (Auto) 9.3 Eosinophils (%) (Auto) 2.2 Basophils (%) (Auto) 0.7 Neutrophils # (Auto) 5.8 Lymphocytes # (Auto) 2.2 Monocytes # (Auto) 0.8 Eosinophils # (Auto) 0.2 Basophils # (Auto) 0.1 CBC Comment DIFF FINAL Differential Comment Erythrocyte Sedimentation Rate 44 Prothrombin Time 10.6 Prothromb Time International 1.0 Ratio Activated Partial 27.1 Thromboplast Time Sodium Level 140 Potassium Level 4.1 Chloride Level 105 Carbon Dioxide Level 29.0 Anion Gap 6 Blood Urea Nitrogen 19 Creatinine 1.00 Estimat Glomerular Filtration 92 Rate Random Glucose 171 Calcium Level 9.0 Magnesium Level 2.1 Total Bilirubin 0.3 Aspartate Amino Transf 21 (AST/SGOT) Alanine Aminotransferase 29 (ALT/SGPT) Alkaline Phosphatase 100 Total Creatine Kinase 173 Creatine Kinase MB 0.9 Troponin I LESS THAN 0.02 B-Type Natriuretic Peptide 4 Total Protein 7.6 Albumin 3.6 Lipase 388 Urine Color YELLOW Urine Turbidity CLEAR Urine pH 6.5 Urine Specific [place] 1.022 Urine Protein NEG Urine Glucose (UA) 150 Urine Ketones TRACE Urine Occult Blood NEG Urine Nitrite NEG Urine Bilirubin NEG Urine Urobilinogen LESS THAN 2.0 Urine Leukocyte Esterase NEG Result Diagram: 03/19/1713603/19/17136 Imaging Last Impressions Head CT 03/19/17129 Signed Impressions: Service Date/Time: Sunday, March 19, 2017 01:45 - CONCLUSION: Normal examination. Neil Posadas MD Chest X-Ray 03/19/17129 Signed Impressions: Service Date/Time: Sunday, March 19, 2017 01:41 - CONCLUSION: Normal examination. Prominent aortic arch similar to October. Neil Posadas MD Assessment and Plan Assessment and Plan 61-year-old male PMH significant for DM. Admitted for TIA Code Status Full Discussed Condition With Dr. Bonilla Problem List: (1) TIA (transient ischemic attack) Status: Acute Plan: Symptoms of left facial droop, slurred speech, unsteady gait. Symptoms have significantly improved since admission. DDX includes TIA vs stroke. Etiology unclear but patient will also need thorough evaluation of arrhythmia to make sure he is not having paroxysmal atrial fibrillation. -Lipid profile ordered -Cardiac telemetry -Neuro checks -PT consulted Imaging: * Head CT negative * MRA, MRI ordered * Echo ordered Medications: * Aspirin 81 mg daily * Start atorvastatin 40 mg daily (2) Diabetes mellitus type 2 in nonobese Status: Chronic Plan: Takes metformin at home. Hold home medication -Low-dose sliding scale while in the hospital (3) Headache Status: Acute Plan: Symptoms of TIA associated with left temporal stabbing pain. No associated jaw pain. ESR minimally elevated at 44. Low suspicion for temporal arteritis at this time. Symptoms may be related to TIA versus trigeminal neuralgia. No skin lesions to indicated zoster. No pain at present. -Will need to be closely monitored. -If symptoms persist, may benefit from further medical intervention. (4) Nutrition, metabolism, and development symptoms Status: Acute Plan: Diet: Diabetic Fluids: None Electrolytes: Unremarkable DVT prophylaxis: Lillian Dimas MD R2 Mar 19, 2017 06:00
[2017-03-19] MEDS ORDERED: GLUCAGON 1 MG/ML VIAL OTHER PRN (06:30)
[2017-03-19] MEDS ORDERED: DEXTROSE 50% IN WATER 50 ML VIAL(D50) IV PUSH PRN (06:30)
[2017-03-19] MEDS ORDERED: ACETAMINOPHEN/HYDROcodone 325 MG/10 MG TAB PO PRN (06:30)
[2017-03-19] MEDS: INSULIN ASPART SUPPLEMENTAL SCALE SQ SCH ×4 (06:44→21:00)
[2017-03-19 08:03] LABS: HDL CHOLESTEROL 35.8 MG/DL (40.0-60.0)
[2017-03-19] MEDS: ATORVASTATIN 40 MG TAB PO SCH (08:10)
[2017-03-19] MEDS: ASPIRIN 81 MG CHEW TAB PO SCH (08:25)
[2017-03-19] MEDS: MELOXICAM 7.5 MG TAB PO SCH (08:25)
[2017-03-19] MEDS ORDERED: LORazepam 2 MG/ML VIAL IM ONE (09:45)
[2017-03-19] MEDS ORDERED: LORazepam 2 MG/ML VIAL IV PUSH ONE (10:00)
--- NOTE | 2017-03-19 10:09 | HHI.FPPN ---
Subjective Remarks Pt. seen, examined and discussed with Drs. Jay and Elio. This is a 61-year-old male known type II diabetic who, on the day of admission, awoke not feeling "good". He went out to get the newspaper, and noticed that he had a left temporal throbbing pounding pain in his head and had difficulty putting 1 foot in front of the other. He made it to berry picker the paper and made it back to the house, but essentially did not feel like himself. He has environmental allergies, and thought that some of his symptoms were related to this, so took some [place]. He thought he had some decreased sensation or weakness on the left side of his face and his left extremities. He rested during the day, and went to work at night which is his usual work time , and a work colleague noticed that he had some sagging on the left side of his face and patient also noticed that he had decrease in his balance and in fact ran into door jams with his left shoulder on more than one occasion. His coworker convinced him to come to the emergency department and drove him to the emergency department at [place]. He was seen in the emergency department and was felt to have had a TIA. The emergency physician recommended admission. See history and physical examination for this admission for details of his past , family, social history and review of systems at the time of admission. This morning, his headache has cleared, he still feels some perhaps weakness or perhaps decreased sensation in left upper and lower extremities. No change in his vision or hearing, no difficulty swallowing, still feels a little off his balance when ambulating but some of this he attributes to having had knee surgery. He's having no chest pain, no shortness of breath, and no difficulty with his bowels or bladder. He reports claustrophobia and inability to tolerate an MRI without some sedation. Objective Vitals Vital Signs Date Time Temp Pulse Resp B/P Pulse Ox O2 Delivery O2 Flow Rate FiO2 03/19/17 08:00 83 03/19/17 07:13 98.0 80 16 108/59 95 03/19/17 05:09 98.1 78 18 123/81 97 03/19/17 05:00 78 03/19/17 01:35 92 16 146/75 97 16 129/77 101 18 127/94 03/19/17 01:11 101 16 147/79 95 03/19/17 01:01 98.9 107 18 218/81 97 Room Air Result Diagram: 03/19/1713603/19/17136 Other Results Laboratory Tests Test 03/19/17 03/19/17 01:37 02:30 Red Blood Count 4.46 MIL/MM3 Monocytes (%) (Auto) 9.3 % Erythrocyte Sedimentation Rate 44 mm/hr Blood Urea Nitrogen 19 MG/DL Random Glucose 171 MG/DL Troponin I LESS THAN 0.02 NG/ML Triglycerides Level 216 MG/DL Cholesterol Level 218 MG/DL LDL Cholesterol 139 MG/DL HDL Cholesterol 35.8 MG/DL Urine Glucose (UA) 150 mg/dL Urine Ketones TRACE mg/dL Imaging EKG at the time of admission was within normal limits. Last Impressions Head CT 03/19/17129 Signed Impressions: Service Date/Time: Sunday, March 19, 2017 01:45 - CONCLUSION: Normal examination. Neil Posadas MD Chest X-Ray 03/19/17129 Signed Impressions: Service Date/Time: Sunday, March 19, 2017 01:41 - CONCLUSION: Normal examination. Prominent aortic arch similar to October. Neil Posadas MD Objective Remarks O. CONSTITUTIONAL/GEN: normally nourished, in NAD. Sitting at bedside having breakfast. EYES: conjunctiva normal, PERRLA, EOMI. ENT: Mouth and pharynx normal. NECK: Supple LUNGS: clear A-P, respiratory effort is normal. CARDIOVASCULAR: RR without murmur or gallop. No significant edema. GI/ABD: soft without masses, without organomegaly. : no CVA tenderness NEURO: No focal deficits. Gait is normal. Cranial nerves II through XII tested and intact. No neurologic deficits noted, patient states unable to walk heel to toe due to his knee surgery. SKIN: color normal, no rashes noted. HEME/LYMPH: no bruising, petechia or significant adenopathy MUSC: back is normal in appearance. Extremities are normal in appearance. PSYCH/MENTAL STATUS: Alert and oriented x 3. A/P Assessment and Plan 61-year-old male PMH significant for DM. Admitted for TIA to rule out stroke. Discharge Planning Anticipate discharge today after MRI work tomorrow, if echocardiogram and carotid Dopplers can be obtained. Attending Attestation Patient seen and examined. Case reviewed and discussed with the resident team. Agree with plan of care as discussed with me and documented in the resident note. Problem List: (1) TIA (transient ischemic attack) Status: Acute Plan: Symptoms of left facial droop, slurred speech, unsteady gait. Symptoms have significantly improved since admission. DDX includes TIA vs stroke. Etiology unclear but patient will also need thorough evaluation of arrhythmia to make sure he is not having paroxysmal atrial fibrillation. -Lipid profile ordered -Cardiac telemetry -Neuro checks -PT consulted Imaging: * Head CT negative * MRA, MRI ordered * Echo ordered * Carotid Dopplers ordered Medications: * Aspirin 81 mg daily * Start atorvastatin 40 mg daily (2) Diabetes mellitus type 2 in nonobese Status: Chronic Plan: Takes metformin at home. Hold home medication -Low-dose sliding scale while in the hospital (3) Headache Status: Resolved Plan: Symptoms of TIA associated with left temporal stabbing pain. No associated jaw pain. ESR minimally elevated at 44. Low suspicion for temporal arteritis at this time. Symptoms may be related to TIA versus trigeminal neuralgia. No skin lesions to indicate zoster. No pain at present. -Will need to be closely monitored. -If symptoms persist, may benefit from further medical intervention. (4) Nutrition, metabolism, and development symptoms Status: Chronic Plan: Diet: Diabetic Fluids: None Electrolytes: Unremarkable DVT prophylaxis: Lovenox Problem Qualifiers (1) TIA (transient ischemic attack): Qualified Code: G45.9 - Transient cerebral ischemia, unspecified type Hilda Munoz MD Mar 19, 2017 10:09
--- NOTE | 2017-03-19 11:23 | EKG ---
Date Performed: 03/19/2017 Time Performed: 01:14:32 PTAGE: 61 years EKG: Sinus rhythm NORMAL ECG Compared to prior tracing no significant change PREVIOUS TRACING 11/01/2016 21.36.40 DOCTOR: Tapan Kuhn Interpretating Date/Time 03/19/2017 11:19:45
--- NOTE | 2017-03-19 15:43 | RADRPT ---
EXAM DATE/TIME: 03/19/2017 14:19 [facility] COMPARISON: No previous studies available for comparison. INDICATIONS : CVA. MEDICAL HISTORY : Diabetes mellitus type 2. 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 SURGICAL HISTORY : Cardiac ablation, ENCOUNTER: Initial ACUITY: 1 day PAIN SCORE: 2/10 LOCATION: Bilateral cranial Please note a normal MRA of the brain does not entirely exclude the possibility of a small aneurysm, nor the possibility of distal intracranial vessel disease. TECHNIQUE: 3D time of flight MRA was performed. Source images, multiplanar STS MIP, and 3D volume MIP reconstru ctions were reviewed. FINDINGS: There is excellent visualization of the major intracranial arteries out to the second-order branch ve ssels. There is no evidence for aneurysm, vessel truncation or stenosis, and no evidence for vascula r malformation. The left PICA is not visualized. This could easily be normal variant. CONCLUSION: Probably negative. Crispin Benavidez MD FACR on March 19, 2017 at 15:40 Board Certified Radiologist. This report was verified electronically.
--- NOTE | 2017-03-19 15:45 | RADRPT ---
EXAM DATE/TIME: 03/19/2017 14:19 [facility] COMPARISON: No previous studies available for comparison. INDICATIONS : TIA. MEDICAL HISTORY : Diabetes mellitus type 2. 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 SURGICAL HISTORY : Cardiac ablation. ENCOUNTER: Initial ACUITY: 1 day PAIN SCORE: 3/10 LOCATION: Bilateral cranial TECHNIQUE: Multiplanar, multisequence MRI of the brain was performed without contrast. FINDINGS: There is a focal area of restricted diffusion in the left cerebellar hemisphere that is acute on the ADC mapping. Moderate periventricular white matter changes are noted. There are no extra-axial fluid collections appreciated. Midline structures are intact. There is no parenchymal hemorrhage. There are no extra-axial fluid collections appreciated. CONCLUSION: 1. Focal ischemic lacunar in the left cerebellar hemisphere, PICA territory. 2. Periventricular white matter changes. 3. Otherwise negative. Crispin Benavidez MD FACR on March 19, 2017 at 15:39 Board Certified Radiologist. This report was verified electronically.
--- NOTE | 2017-03-19 16:07 | RADRPT ---
EXAM DATE/TIME: 03/19/2017 14:19 [facility] COMPARISON: No previous studies available for comparison. INDICATIONS : TIA. CONTRAST: 20 cc Omniscan (gadodiamide) IV MEDICAL HISTORY : Diabetes mellitus type 2. 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 SURGICAL HISTORY : Cardiac ablation. ENCOUNTER: Initial ACUITY: 1 day PAIN SCORE: 3/10 LOCATION: Bilateral neck region. Percent stenosis is calculated using the diameter of the stenotic region over the diameter of the nor mal distal internal carotid artery. TECHNIQUE: Bolus infused MRA of the extracranial circulation was performed using a neurovascular coil. Post pro cessing was performed including rotating subvolume maximum intensity projections of each carotid amelie ry, rotating full volume maximum intensity projections of both carotid arteries, sagittal and coronal sliding thin slab reformations of each carotid artery, and left oblique sliding thin slab reformatio n through the aortic arch to include the origin of the arch branch vessels. FINDINGS: AORTIC ARCH: There is a three vessel origin of the great vessels from the aorta. No evidence of ostial narrowing. RIGHT CAROTID: The common carotid artery is intact. The carotid bulb has a normal configuration without ulceration or narrowing. The internal carotid artery lumen is smooth without stenosis. The external carotid ar dinh is intact. LEFT CAROTID: The common carotid artery is intact. The carotid bulb has a normal configuration without ulceration or narrowing. The internal carotid artery lumen is smooth without stenosis. The external carotid ar dinh is intact. VERTEBRALS: The vertebral arteries have a symmetric diameter. No stenotic lesions are seen. CONCLUSION: 1. Normal carotid MRA examination. No evidence for significant flow limiting stenosis. Sushil Arcos MD on March 19, 2017 at 15:38 Board Certified Radiologist. This report was verified electronically.
[2017-03-19] MEDS ORDERED: GADODIAMIDE PF 287 MG/ML 5 ML VIAL (for RAD MRI) IV ONE (20:04)
[2017-03-19] MEDS ORDERED: ENOXAPARIN SODIUM 40 MG/0.4 ML SYRINGE SQ SCH (21:00)
[2017-03-20 01:00] VITALS: BP 132/67; PULSE 68; RESP 17; TEMP 97.9; O2SAT 96
[2017-03-20 06:00] VITALS: BP 129/60; PULSE 66; RESP 18; TEMP 98; O2SAT 97
[2017-03-20] MEDS: INSULIN ASPART SUPPLEMENTAL SCALE SQ SCH ×2 (07:00→11:30)
[2017-03-20 08:00] VITALS: BP 126/88; PULSE 82; RESP 20; TEMP 96.5; O2SAT 98
[2017-03-20] MEDS: MELOXICAM 7.5 MG TAB PO SCH (08:57)
[2017-03-20] MEDS: ASPIRIN 81 MG CHEW TAB PO SCH (08:58)
[2017-03-20] MEDS: ATORVASTATIN 40 MG TAB PO SCH (08:58)
[2017-03-20 09:06] LABS: HEMATOCRIT 41.6 % (39.0-51.0); MEAN CELL VOLUME 90.1 FL (80.0-100.0); MEAN CORPUSCULAR HEMOGLOBIN 29.1 PG (27.0-34.0); MEAN CORPUSCULAR HGB CONC 32.2 % (32.0-36.0); PLATELET COUNT 240 TH/MM3 (150-450); RED BLOOD COUNT 4.62 MIL/MM3 (4.50-5.90); RED CELL DISTRIBUTION WIDTH 13.7 % (11.6-17.2); REVIEW FLAG FINAL; WHITE BLOOD COUNT 6.6 TH/MM3 (4.0-11.0)
--- NOTE | 2017-03-20 09:14 | EC ---
Study Study Date:03/19/2017 STUDY CONCLUSIONS SUMMARY LEFT VENTRICLE: The cavity size was normal. Wall thickness was normal. Systolic function was mildly to moderately reduced. The estimated ejection fraction was in the range of 40% to 45%. Wall motion was normal; there were no regional wall motion abnormalities. If LV function is below 40, please consider prescribing an ACEI or ARB or document rationale for non-use. PROCEDURE DATA STUDY STATUS: Elective. Procedure: Transthoracic echocardiography. Image quality was good. Scanning was performed from the parasternal, apical, and subcostal acoustic windows. Study completion: The patient tolerated the procedure well. Transthoracic echocardiography. M-mode, complete 2D, complete spectral Doppler, and color Doppler. Patient status: Inpatient. CARDIAC ANATOMY LEFT VENTRICLE: The cavity size was normal. Wall thickness was normal. Systolic function was mildly to moderately reduced. The estimated ejection fraction was in the range of 40% to 45%. Wall motion was normal; there were no regional wall motion abnormalities. AORTIC VALVE: Trileaflet; normal thickness leaflets. Doppler: Transvalvular velocity was within the normal range. There was no stenosis. No regurgitation. AORTA: Aortic root: The aortic root was normal in size. MITRAL VALVE: Structurally normal valve. Doppler: Transvalvular velocity was within the normal range. There was no evidence for stenosis. Trace regurgitation. LEFT ATRIUM: The atrium was normal in size. RIGHT VENTRICLE: The cavity size was normal. Wall thickness was normal. PULMONIC VALVE: Doppler: Transvalvular velocity was within the normal range. There was no evidence for stenosis. No regurgitation. TRICUSPID VALVE: Structurally normal valve. Doppler: Transvalvular velocity was within the normal range. Trace regurgitation. PULMONARY ARTERY: The main pulmonary artery was normal-sized. Systolic pressure was within the normal range. RIGHT ATRIUM: The atrium was normal in size. PERICARDIUM: There was no pericardial effusion. SYSTEMIC VEINS: Inferior vena cava: The vessel was normal in size. BASIC MEASUREMENTS ADULT Normal Left ventricle LV internal dimension, ED, chordal level, *55.8 mm 43-52 PLAX LV internal dimension, ES, chordal level, *46 mm 23-38 PLAX Fractional shortening, chordal level, PLAX *18 % >29 LV posterior wall thickness, ED 7.53 mm IVS/LVPW ratio, ED *1.45 <1.3 Ventricular septum Septal thickness, ED 10.9 mm Aortic valve Leaflet separation 21 mm 15-26 Left atrium Anterior-posterior dimension 28 mm Right ventricle RV internal dimension, ED, PLAX 21.4 mm 19-38 BASIC MEASUREMENTS ADULT Normal Aortic valve Leaflet separation 21 mm 15-26 Aorta Root diameter, ED 33 mm 20-37 DOPPLER MEASUREMENTS ADULT Normal Mitral valve Peak E-wave velocity 52.8 cm/s Peak A-wave velocity 66.1 cm/s Peak E/A ratio 0.8 Tricuspid valve Regurgitant peak velocity 280 cm/s Peak RV-RA gradient, S 31 mm Hg Maximal regurgitant velocity 280 cm/s LEGEND: Mean values are shown as u=mean value. Asterisk (*) romano values outside specified normal range. Prepared and signed by Stephan Martin [id number]
[2017-03-20 09:27] LABS: BICARBONATE 26.4 MEQ/L (21.0-32.0); POTASSIUM 3.8 MEQ/L (3.5-5.1)
--- NOTE | 2017-03-20 09:41 | MB ---
cc: CLIF GUSMAN M.D. DATE OF CONSULTATION: 03/20/2017 REASON FOR CONSULTATION: Patient is seen in neurological consultation. HISTORY OF PRESENT ILLNESS: The patient is a 61 year old seen because of neurologic symptoms that started on Sunday morning upon waking up. He had difficulty walking and had ataxia. He had a left sided headache and some visual phenomena. He was slurring his speech mildly. He seemed to have some left facial droop according to the emergency department notes. He thought this was also an allergy as he had has problems in the past and this time he took some over the counter medication and the symptoms did not subside. He was brought to the hospital yesterday and admitted. He is much improved. He has been walking to the bathroom without problems. He has a history of diabetes mellitus, he had lymphoma in 2000. He was on Metformin. He took a baby aspirin in the past but stopped it as he felt this may have caused chest pain. There is a history of heart ablation. He takes hydrocodone as needed, rarely. NEUROLOGIC EXAMINATION: Shows normal mentation, also movements and visual hardy are full. Pupils equal and reactive. No facial weakness. Speech and language normal. He has good strength in all four limbs on the bedside exam. Reflexes 1+ at the elbows, trace at the knees, trace at the ankles and plantar responses were flexor. I did not ambulate the patient but he reports is having no difficulty when ambulating throughout the night. ASSESSMENT Lacunar stroke left cerebellar, acute. RADIOLOGIC: The MRI of brain revealed this lacunar and the MRA of the head and neck were essentially unremarkable with studies. LABORATORY DATA: CBC unremarkable. Sed rate 44. Chemistry showing basic numbers normal, glucose 171. LDL elevated to 139. EKG shows sinus rhythm. PLAN: The patient is going to continue aspirin and a statin. The goal would be to bring his LDL down to below 60. He was started on Lipitor 40 mg a day. He is I will also suggest an echocardiogram if not completed yet. He can otherwise be followed as outpatient. I feel if the echo is unremarkable. He can be discharged. Discussed with him that the risk factors here diabetes, hypertension, hyperlipidemia, and smoking. Also advocated smoke cessation. I can see him in the office in a couple of weeks for followup. Thank you for asking us to assist in his care. MD Gabriela Michel /8:12 AM /9:25 AM
[2017-03-20] MEDS ORDERED: ASPI81CH25 PO (09:43)
[2017-03-20] MEDS ORDERED: ATOR40TA16 PO (09:43)
--- NOTE | 2017-03-20 09:44 | HHI.DCPOC ---
Discharge Care Plan Diagnosis: (1) Cerebellar stroke, acute Goals to Promote Your Health * To prevent worsening of your condition and complications * To maintain your health at the optimal level Directions to Meet Your Goals Take your medications as prescribed Follow your dietary instruction Follow activity as directed Keep your appointments as scheduled Take your immunizations and boosters as scheduled If your symptoms worsen call your PCP, if no PCP go to Urgent Care Center or Emergency Room Smoking is Dangerous to Your Health. Avoid second hand smoke Call the 24-hour hour crisis hotline for domestic abuse at Price Ballard MD R2 Mar 20, 2017 09:44
--- NOTE | 2017-03-20 10:06 | HHI.FPPN ---
Subjective Remarks No acute events. States he feels much better today. Has mild dizziness/balance issues when walking, but is not bumping into objects and is getting around the room without problem. Reports no focal weaknesses. No visual changes. Headaches have resolved. (Price Ballard MD R2) Objective Vitals Vital Signs Date Time Temp Pulse Resp B/P Pulse Ox O2 Delivery O2 Flow Rate FiO2 03/20/17 08:00 96.5 82 20 126/88 98 03/20/17 06:00 98.0 66 18 129/60 97 03/20/17 01:00 97.9 68 17 132/67 96 03/19/17 20:00 98.4 76 18 97 03/19/17 17:50 97.5 76 20 123/65 96 03/19/17 15:36 98.4 76 18 106/74 97 03/19/17 11:28 98.5 77 18 111/74 97 I/O 03/19/17 03/19/17 03/19/17 03/20/17 03/20/17 03/20/17 07:00 15:00 23:00 07:00 15:00 23:00 Intake Total 550 ml 900 ml Output Total 0 ml Balance 550 ml 900 ml Intake Oral 550 ml 900 ml Output Urine Total 0 ml # Voids 1 2 2 # Bowel Movements 0 0 (Price Ballard MD R2) Result Diagram: 03/20/17 0816 03/20/17 0816 Imaging Last [address] 03/19/17129 Signed Impressions: Service Date/Time: Sunday, March 19, 2017 01:45 - CONCLUSION: Normal examination. Neil Posadas MD Chest X-Ray 03/19/17129 Signed Impressions: Service Date/Time: Sunday, March 19, 2017 01:41 - CONCLUSION: Normal examination. Prominent aortic arch similar to October. Neil Posadas MD Neck Magnetic Resonance Angiography 03/19/17 0000 Signed Impressions: Service Date/Time: Sunday, March 19, 2017 14:19 - CONCLUSION: 1. Normal carotid MRA examination. No evidence for significant flow limiting stenosis. Sushil Arcos MD Head Magnetic Resonance Angiography 03/19/17 0000 Signed Impressions: Service Date/Time: Sunday, March 19, 2017 14:19 - CONCLUSION: Probably negative. Crispin Benavidez MD FACR Brain MRI 03/19/17 0000 Signed Impressions: Service Date/Time: Sunday, March 19, 2017 14:19 - CONCLUSION: 1. Focal ischemic lacunar in the left cerebellar hemisphere, PICA territory. 2. Periventricular white matter changes. 3. Otherwise negative. Crispin Benavidez MD FACR Objective Remarks O. CONSTITUTIONAL/GEN: Up walking around, no distress EYES: conjunctiva normal, PERRLA, EOMI. ENT: Mouth and pharynx normal. NECK: Supple LUNGS: CTAB, respiratory effort is normal. CARDIOVASCULAR: RR without murmur or gallop. No edema GI/ABD: soft without masses, without organomegaly. : no CVA tenderness NEURO: CN intact. EOMI, PERRLA. Gait is normal. Cranial nerves II through XII tested and intact. Romberg negative. Normal strength and sensation throughout. SKIN: color normal, no rashes noted. HEME/LYMPH: no bruising, petechia or significant adenopathy MUSC: back is normal in appearance. Extremities are normal in appearance. PSYCH/MENTAL STATUS: Alert and oriented x 3. (Price Ballard MD R2) A/P Assessment and Plan 61-year-old male PMH significant for DM. Admitted for neurological symptoms, found to have cerebellar stroke. Discharge Planning Anticipate discharge today after MRI work tomorrow, if echocardiogram and carotid Dopplers can be obtained. (Price Ballard MD R2) Attending Attestation Patient seen and examined. Case reviewed and discussed with the resident team. Agree with plan of care as discussed with me and documented in the resident note. I spoke via phone with Dr. Alejandre at [facility] and appear to be year consultation and was informed that Mr. Carmen was approved for inpatient status. (Hilda Munoz MD) Problem List: (1) Thrombotic stroke involving left cerebellar artery Status: Acute Plan: Symptoms of left facial droop, slurred speech, unsteady gait. Symptoms now resolved except mild balance issues when standing. Left cerebellar lacunar stroke in PICA territory confirmed. MRA normal. Echo reviewed: EF is 40-45%, otherwise no abnormalities. No thrombi or valvular issues. EKG showing normal sinus rhythm. - Aspirin, statin - Blood pressures well controlled in hospital - Neurology consulted, appreciate recommendations - Needs to work with PT today, appreciate recommendations - He is a smoker, recommended nicotine patches/gum, call [place] Quit Hotline - Daily moderate exercise with supervision of physician - Mediterranean diet - Needs good control of diabetes, continue metformin, close follow up with PCP (2) Diabetes mellitus type 2 in nonobese Status: Chronic Plan: Takes metformin at home. Hold home medication -Low-dose sliding scale while in the hospital -Resume metformin at home (3) Nutrition, metabolism, and development symptoms Status: Chronic Plan: Diet: Diabetic Fluids: PO Electrolytes: Monitor DVT prophylaxis: Lovenox (Price Ballard MD R2) Price Ballard MD R2 Mar 20, 2017 10:06 Hilda Munoz MD Mar 20, 2017 15:20
[2017-03-20 12:58] VITALS: PULSE 80
[2017-03-20 17:36] LABS: HEMOGLOBIN A1a 1.3 %; HEMOGLOBIN A1b 2.1 %; HEMOGLOBIN Ao 82.1 %; HEMOGLOBIN LA1C 2.1 %; HEMOGLOBIN P3 4.1 %
--- NOTE | 2017-03-22 06:46 | HHI.DS ---
Discharge Summary Admission Date Mar 19, 2017 at 03:49 Discharge Date: Mar 20, 2017 Admitting Diagnosis TIA (1) Thrombotic stroke involving left cerebellar artery Plan: Symptoms of left facial droop, slurred speech, unsteady gait. Symptoms now resolved except mild balance issues when standing. Left cerebellar lacunar stroke in PICA territory confirmed. MRA normal. Echo reviewed: EF is 40-45%, otherwise no abnormalities. No thrombi or valvular issues. EKG showing normal sinus rhythm. - Aspirin, statin - Blood pressures well controlled in hospital - Neurology consulted, appreciate recommendations - Needs to work with PT today, appreciate recommendations - He is a smoker, recommended nicotine patches/gum, call [employer] - Daily moderate exercise with supervision of physician - Mediterranean diet - Needs good control of diabetes, continue metformin, close follow up with PCP (2) Diabetes mellitus type 2 in nonobese Plan: Takes metformin at home. Hold home medication -Low-dose sliding scale while in the hospital -Resume metformin at home (3) Nutrition, metabolism, and development symptoms Plan: Diet: Diabetic Fluids: PO Electrolytes: Monitor DVT prophylaxis: Lovenox [facility] Neurology Procedures None Brief History Patient is a 61-year-old male with PMH significant for DM and lymphoma in 2000. Presented to the ED due to unsteady gait and left facial droop. 2 days ago he reported left shooting arm pain that was attributed to a workout but this resolved. He did wake up at 7 AM feeling "off" and groggy which he attributed to his allergies. But by 8 AM, he developed an unsteady gait, slurred speech, localized severe left temporal pain that was stabbing in nature. Endorsed nausea but without vomiting. Denies chest pain, SOB, abdominal pain. Denies jaw pain or syncope. He was able to make it back to his house and rested for 10 minutes before driving to the store despite continued presence of symptoms. After going to the store, he slept for 4-5 hours but symptoms were persistent. He then went to work at night where his coworker noted left-sided facial droop. At the insistence of his coworker, he presented to the ED last night. This morning patient reports feeling much better and states that his speech has significantly improved as well. Prior to the onset of these symptoms, patient was feeling well and denies any similar prior episodes. CBC/BMP: 03/20/17 0816 03/20/17 0816 Significant Findings Laboratory Tests Test 03/20/17 08:16 Random Glucose 117 MG/DL (74-106) Hemoglobin A1c 7.5 % (4.3-6.0) PE at Discharge O. CONSTITUTIONAL/GEN: Up walking around, no distress EYES: conjunctiva normal, PERRLA, EOMI. ENT: Mouth and pharynx normal. NECK: Supple LUNGS: CTAB, respiratory effort is normal. CARDIOVASCULAR: RR without murmur or gallop. No edema GI/ABD: soft without masses, without organomegaly. : no CVA tenderness NEURO: CN intact. EOMI, PERRLA. Gait is normal. Cranial nerves II through XII tested and intact. Romberg negative. Normal strength and sensation throughout. SKIN: color normal, no rashes noted. HEME/LYMPH: no bruising, petechia or significant adenopathy MUSC: back is normal in appearance. Extremities are normal in appearance. PSYCH/MENTAL STATUS: Alert and oriented x 3. Hospital Course 61 year old male presented with unsteady gait and left facial droop, along with slurred speech. Symptoms mostly resolved by discharge. He was found to have a left cerebellar lacunar infarct in the PICA territory. MRA was normal. ECHO showed slightly reduced EF of 40-45%. There were no thrombi or valvular issues on ECHO. EKG showed sinus rhythm. He was started on aspirin and statin. Blood pressures remained well controlled in the hospital. Neurology was consulted. He worked with physical therapy. He is a smoker and it was recommended he try nicotine patches/gum and call the [place] Quit Hotline. Recommended moderate exercise under the supervision of a physician. Recommended he adhere to a Mediterranean style diet. He has diabetes that is controlled by metformin. Recommended good control of diabetes, continued use of metformin, and close follow up with his PCP. He will follow up with neurology as an outpatient. He was discharged home with no recommendations for rehab or PT. Pt Condition on Discharge: Good Discharge Disposition: Discharge Home Discharge Instructions DIET: Follow Instructions for: Diabetic Diet Activities you can perform: Regular-No Restrictions Follow up Referrals: Neurology - 1 Week PCP Follow-up - 1 Week New Medications: Aspirin (Aspirin Low Strength) 81 Mg Chew 81 MG PO DAILY #30 EA Atorvastatin (Atorvastatin) 40 Mg Tab 40 MG PO DAILY #30 TAB Continued Medications: Meloxicam (Mobic) 7.5 Mg Tab 7.5 MG PO DAILY Pain Ref 0 TAB Metformin (Metformin) 500 Mg Tab 1000 MG PO BIDPC With meals Blood Sugar Management #120 Ref 3 TAB Discontinued Medications: Hydrocodone-Acetaminophen (Hydrocodone-Acetaminophen) 10-325 mg Tab 1 TAB PO Q6H Not to be filled before 17 PRN PAIN #90 Ref 0 TAB Price Ballard MD R2 Mar 22, 2017 06:46
[2017-03-27] MEDS ORDERED: HYDR-3516 PO ×2 (12:19→15:41)
[2017-04-12] MEDS ORDERED: AUGM875T3 PO (15:28)
== END 2017-03-20 14:39 | disposition home or self-care (01) | DRG 66 ==
LOC: NEPE 00:59 → NEDA 03:49 → NEPFCDU 04:49 → N05A 17:10
PROVIDERS: ADMIT Family Medicine; ATTEND Family Medicine
DX: I63.342 Cerebral infarction due to thrombosis of left cerebellar artery (principal); I10 Essential (primary) hypertension; Z85.72 Personal history of non-Hodgkin lymphomas; Z92.21 Personal history of antineoplastic chemotherapy; Z92.3 Personal history of irradiation; E11.9 Type 2 diabetes mellitus without complications; Z79.84 Long term (current) use of oral hypoglycemic drugs; F17.210 Nicotine dependence, cigarettes, uncomplicated; R27.0 Ataxia, unspecified; R47.81 Slurred speech; E78.5 Hyperlipidemia, unspecified; F40.240 Claustrophobia; M79.602 Pain in left arm
CPT/HCPCS: 70450; 70544; 70548; 70551; 71010; 80048; 80053; 80061; 81001; 82550; 82552; 82948; 83036; 83690; 83735; 83880; 84484; 85025; 85027; 85610; 85652; 85730; 93005; 93306; 96360; A9579; J1650; J1815; J2060; J7040

== ENCOUNTER 2017-11-07 02:35 | Emergency (ER) | payer OTHER ==
[~2017-11-07] VITALS: Ht 195.6 cm; Wt 120.0 kg
[~2017-11-07 02:35] MED LIST changes: +ASPI81CH25 PO; +ATOR40TA16 PO; +FEXO180T PO; -HYDR-3583 PO; +MOBI7.5T PO; -MULT1TAB84 PO
[2017-11-07 02:37] VITALS: BP 149/85; PULSE 92; RESP 16; TEMP 98.9; O2SAT 99
[2017-11-07] MEDS ORDERED: IBUPROFEN 800 MG TAB PO ONE (03:30)
[2017-11-07] MEDS ORDERED: OSELTAMIVIR PHOSPHATE 75 MG CAP PO ONE (03:30)
[2017-11-07] MEDS ORDERED: OSEL75 PO (03:41)
[2017-11-07] MEDS ORDERED: IBUP-232 PO (03:41)
--- NOTE | 2017-11-07 03:41 | PD ---
HPI Chief Complaint: Cold / Flu Symptoms Time Seen by Provider: 02:57 Travel History International Travel<30 days: No Contact w/Intl Traveler<30days: No Traveled to known affect area: No History of Present Illness HPI Patient is a 61-year-old male presenting to emergency for evaluation of body aches, subjective fevers, chills. Patient states his symptoms started last night, he has been using cough medicine and honey tea. He states he tried to go to work but the body aches became worse and he presented to emergency department. He denies any nausea or vomiting, abdominal pain, chest pain or shortness of breath. He does report a cough which is nonproductive. Patient has not taken any ibuprofen or acetaminophen for his pain. He has a history of type 2 diabetes. He has no other complaints at this time. Symptom onset was gradual, there are no alleviating factors. PFSH Past Medical History Arthritis: Yes (KNEE) Atrial Fibrillation: Yes Depression: Yes Cancer: Yes (LYMPHOMA) Chemotherapy: Yes (2000) Cerebrovascular Accident: Yes (CVA) Diabetes: Yes (TYPE II) Patient Takes Glucophage: Yes Headaches: Yes Neurologic: Yes Migraines: Yes (LEFT SIDE OF HEAD) Radiation Therapy: Yes (2000) Past Surgical History Cardiac Surgery: Yes (ABALT, 2000) Coronary Artery Bypass Graft: No Other Surgery: Yes (LYMPHOMA-TUMOR REMOVED L NECK) Social History Alcohol Use: Yes (Occasionally) Tobacco Use: Yes (2 PPD) Substance Use: No Allergies-Medications (Allergen,Severity, Reaction): Coded Allergies: No Known Allergies (Unverified Adverse Reaction, Unknown, 11/07/17) Reported Meds & Prescriptions Reported Meds & Active Scripts Active Metformin (Metformin HCl) 500 Mg Tab 1,000 Mg PO BIDPC With meals Atorvastatin (Atorvastatin Calcium) 40 Mg Tab 40 Mg PO DAILY Reported Mobic (Meloxicam) 7.5 Mg Tab 7.5 Mg PO DAILY Review of Systems Except as stated in HPI: all other systems reviewed are Neg General / Constitutional: Positive: Fever, Chills HENT: Positive: Congestion, No: Headaches Cardiovascular: No: Chest Pain or Discomfort Respiratory: Positive: Cough, No: Shortness of Breath Gastrointestinal: No: Nausea, Abdominal Pain Musculoskeletal: Positive: Myalgias Physical Exam Narrative GENERAL: Well-developed, well-nourished, well-appearing male. Resting in no acute distress. SKIN: Warm and dry. HEAD: Atraumatic. Normocephalic. EYES: Pupils equal and round. No scleral icterus. No injection or drainage. ENT: No nasal bleeding or discharge. Mucous membranes pink and moist. NECK: Trachea midline. No JVD. CARDIOVASCULAR: Regular rate and rhythm. RESPIRATORY: No accessory muscle use. Clear to auscultation. Breath sounds equal bilaterally. GASTROINTESTINAL: Abdomen soft, non-tender, nondistended. Hepatic and splenic margins not palpable. MUSCULOSKELETAL: Extremities without clubbing, cyanosis, or edema. No obvious deformities. NEUROLOGICAL: Awake and alert. No obvious cranial nerve deficits. Motor grossly within normal limits. Five out of 5 muscle strength in the arms and legs. Normal speech. PSYCHIATRIC: Appropriate mood and affect; insight and judgment normal. Data Data Last Documented VS Vital Signs Date Time Temp Pulse Resp B/P (MAP) Pulse Ox O2 Delivery O2 Flow Rate FiO2 11/07/17 02:37 98.9 92 16 149/85 (106) 99 Room Air Orders Orders Influenzae A/B Antigen (11/07/17 02:56) Ibuprofen (Motrin) (11/07/17 03:30) Oseltamivir (Tamiflu) (11/07/17 03:30) MDM Medical Decision Making Medical Screen Exam Complete: Yes Emergency Medical Condition: Yes Interpretation(s) Vital Signs Date Time Temp Pulse Resp B/P (MAP) Pulse Ox O2 Delivery O2 Flow Rate FiO2 11/07/17 02:37 98.9 92 16 149/85 (106) 99 Room Air Differential Diagnosis Influenza versus viral syndrome versus bronchitis versus URI versus other Narrative Course Patient is a 61-year-old male presenting with cold and flu symptoms that started last night. Patient's vital signs are stable. Influenza is positive for flu B. Patient will be given dose of ibuprofen and Tamiflu now. He is encouraged to rest, maintain adequate fluid intake, take acetaminophen and/or ibuprofen as needed and as directed for body aches, fevers and pain. He was advised to follow-up with his primary doctor. Additionally patient was advised strongly to return to the department immediately for any new or worsening symptoms. Patient verbalized understanding of these instructions. Patient is stable for discharge. Diagnosis Primary Impression: Influenza B Referrals: Primary Care Physician 2 days Patient Instructions: General Instructions, Influenza (GEN) Additional Instructions: Rest, maintain adequate fluid intake Take acetaminophen or ibuprofen as needed and as directed for fevers or pain Complete full course of Tamiflu as prescribed Follow-up with your primary doctor Return to emergency department immediately for any new or worsening symptoms Med/Other Pt SpecificInfo: Prescription(s) given Scripts Ibuprofen (Ibuprofen) 600 Mg Tab 600 MG PO Q6H Y for Pain/Inflammation, #40 TAB 0 Refills Prov: Nicole Galvan 11/07/17 Oseltamivir (Tamiflu) 75 Mg Cap 75 MG PO BID for Mgmt Viral Infection, #9 CAP 0 Refills Prov: Nicole Galvan 11/07/17 Disposition: 01 DISCHARGE HOME Condition: Stable Nicole Galvan Nov 07, 2017 03:41
== END 2017-11-07 04:00 | disposition home or self-care (01) ==
LOC: NEPD 02:35
DX: J11.1 Influenza due to unidentified influenza virus with other respiratory manifestations (principal); E11.9 Type 2 diabetes mellitus without complications; M17.9 Osteoarthritis of knee, unspecified; I48.91 Unspecified atrial fibrillation; F32.9 Major depressive disorder, single episode, unspecified; F17.200 Nicotine dependence, unspecified, uncomplicated; Z79.899 Other long term (current) drug therapy; Z86.73 Personal history of transient ischemic attack (TIA), and cerebral infarction without residual deficits
CPT/HCPCS: 87804; 99283